=== PATIENT | female | born 1980 | race Caucasian/White ===

== ENCOUNTER 2016-09-12 07:17 | Day surgery (SDC) | payer MEDICAID ==
[2016-09-12] MEDS ORDERED: Dextrose 5%-Lactated Ringers 1,000 ML IV SCH (08:15)
[2016-09-12] MEDS ORDERED: Dexamethasone 4 MG/ML SDV ONE (09:11)
[2016-09-12] MEDS ORDERED: Propofol 200 MG/20 ML SDV ONE (09:11)
[2016-09-12] MEDS ORDERED: Neostigmine Methylsulfate 1 MG/ML 5 ML Syringe ONE (09:11)
[2016-09-12] MEDS ORDERED: Succinylcholine/Normal Saline 200 MG/10 ML Syringe ONE (09:11)
[2016-09-12] MEDS ORDERED: fentaNYL 250 MCG/5 ML SDV ONE ×2 (09:11→09:54)
[2016-09-12] MEDS ORDERED: Ondansetron 4 MG/2 ML SDV ONE (09:11)
[2016-09-12] MEDS ORDERED: Rocuronium 50 MG/5 ML Vial ONE (09:11)
[2016-09-12] MEDS ORDERED: Lidocaine 1% 2 ML ONE (09:25)
[2016-09-12] MEDS ORDERED: Bupivacaine 0.5%/EPINEPHrine 1:200,000 50 ML MDV ONE (09:43)
[2016-09-12] MEDS: cefOXitin 2 GM in Sodium Chloride 0.9% 50 ML IV ONE ×2 (09:55→11:25)
[2016-09-12] MEDS ORDERED: Naloxone 0.4 MG/ML SDV IV PRN (09:57)
[2016-09-12] MEDS ORDERED: HYDROmorphone/Normal Saline 15 MG/30 ML PCA IV PRN (10:00)
[2016-09-12] MEDS ORDERED: ALPRAZolam 0.25 MG Tab PO PRN (10:45)
[2016-09-12] MEDS ORDERED: Acetaminophen/HYDROcodone 325-5 MG Tab PO PRN (11:38)
[2016-09-12] MEDS ORDERED: Ondansetron 4 MG/2 ML SDV IVPUSH PRN (11:38)
[2016-09-12 13:11] VITALS: BP 139/89
[2016-09-12] MEDS ORDERED: Pantoprazole 40 MG Vial IV SCH (14:00)
[2016-09-12] MEDS ORDERED: cefOXitin 2 GM in Sodium Chloride 0.9% 50 ML IV ONE (16:00)
[2016-09-12] MEDS ORDERED: busPIRone 10 MG Tab PO SCH (21:00)
[2016-09-12] MEDS ORDERED: Melatonin 3 MG Tab PO SCH (21:00)
--- NOTE | 2016-09-18 13:37 | OR ---
DATE OF PROCEDURE: 09/12/2016 PREOPERATIVE DIAGNOSIS: Biliary dyskinesia. POSTOPERATIVE DIAGNOSES: 1. Biliary dyskinesia. 2. Umbilical hernia. PROCEDURE: Diagnostic laparoscopy with: 1. Cholecystectomy (03089). 2. Umbilical hernia repair (76307). ANESTHESIA: General. TRAINING AND DEVELOPMENT OFFICER: Camryn Arreola PA-C. INDICATIONS FOR PROCEDURE: This is a 36-year-old presenting with recurrent upper abdominal pain and nausea. A CCK-stimulated HIDA scan was consistent with biliary dyskinesia, and the plan is to proceed with a laparoscopic cholecystectomy. Potential risks including bleeding, infection, injury to underlying viscera such as common bile duct, potential persistence of symptoms postoperatively, such were all reviewed, and the patient wishes to proceed. DETAILS OF PROCEDURE: The patient was taken to the operating room after general endotracheal anesthesia was induced. The abdomen was prepped and draped. A transverse epigastric incision was made in the peritoneal cavity under direct vision with an Optiview trocar and inflated to 15 mmHg pressure with CO2. The laparoscope was reinserted. No underlying trocar insertion site injuries were seen. Following this, the umbilical area was examined. The patient was noted to have a roughly 1 cm umbilical hernia, a transverse infraumbilical incision was made. Initially, the camera port trocar was placed through the center of the umbilical hernia in preparation for subsequent repair. one 5 mm trocar was then placed in the right upper quadrant, and at that point, the gallbladder was examined and noted to be quite distended, somewhat thick-walled, and white-cowan in appearance consistent with chronic cholecystitis. The gallbladder was retracted anterolaterally and dissection began on the gallbladder neck, continued around the gallbladder neck and cystic duct junction. Once that area was well delineated as was the cystic artery, both structures were clipped 3 times proximally, one distally, and the gallbladder dissected off the gallbladder bed using Harmonic scalpel and throughout the upper midline port. I retained a small amount of sludge along with cholesterolosis of the gallbladder mucosa. The area of dissection was inspected. No bleeding or bile leaks were seen. A David-Roach drain was felt not to be necessary. The camera port was then brought back up to the epigastric site, and at that point, attention was taken to the umbilical hernia. Using the laparoscopic suture passer with 0 Vicryl sutures. Sutures were placed such the umbilical hernia would be closed with a transverse orientation. Once these sutures were all in place, the remaining trocars removed and the peritoneal cavity deflated. The epigastric site was closed with fascia with the 0 Vicryl stitch, and after decompression of the abdomen, the umbilical hernia was then repaired. Sutures were tied and the skin at each of the locations closed with a 4-0 Vicryl skin stitch. Dressing was applied. The patient was taken to the recovery room in satisfactory condition. There were no evident complications. Physician surveyor instrument assistant, Camryn Arreola, played an essential role in assisting in this case, helping to position the patient, retract structures as needed, as well suturing and cutting sutures when indicated. Her presence improved the patient's safety and decreased operative time. Toñito Ace MD /[id number]
== END 2016-09-12 18:30 | disposition home or self-care (01) ==
LOC: JP.SDS 07:17 → JP.MS 11:00 → JP.SDS 18:30
PROVIDERS: ATTEND Surgery
PROC: 0FT40ZZ Resection of Gallbladder, Open Approach (ICD-10-PCS; principal; 2016-09-12)
PROC: 0FT44ZZ Resection of Gallbladder, Percutaneous Endoscopic Approach (ICD-10-PCS; 2016-09-12)
PROC: 0WQF4ZZ Repair Abdominal Wall, Percutaneous Endoscopic Approach (ICD-10-PCS; 2016-09-12)
DX: K83.9 Disease of biliary tract, unspecified (principal); K81.1 Chronic cholecystitis; K42.9 Umbilical hernia without obstruction or gangrene
CPT/HCPCS: 36415; 47562; 49652; 80053; 85027; A9270; C9113; J0694; J1100; J1170; J2405; J2704; J3010; J7042; J7050; 88304

== ENCOUNTER 2016-11-17 08:00 | Emergency (ER) | payer MEDICAID ==
[2016-11-17] MEDS ORDERED: Ketorolac 60 MG/2 ML SDV IM ONE (08:34)
--- NOTE | 2016-11-17 08:37 | EDM.PDOC ---
[id number] PAIN, VOMITING Time Seen by Provider: 11/17/16 08:15 Source of Information: Reports: Patient, Family History Limitations: Reports: No Limitations - History of Present Illness INITIAL COMMENTS - FREE TEXT/NARRATIVE: 36-year-old female who started getting ill 36 hours ago with a sore throat, then developed generalized body aches, nasal congestion, earaches and nausea and vomiting. Onset: Gradual (Over the last day and a half) Severity: Moderate Associated Symptoms: Reports: Fever/Chills, Headaches, Nausea/Vomiting, Other ( Nasal congestion, ear pain and sore throat). Denies: Cough, Shortness of Breath Generalized Pain Score (Numeric/FACES): 9 - Related Data Allergies Allergy/AdvReac Type Severity Reaction Status Date / Time diphenhydramine Allergy Cannot Verified 11/17/16 08:08 Remember Home Meds: Home Meds ALPRAZolam [Alprazolam] 0.25 mg PO ASDIRECTED PRN 07/30/16 [History] Acetaminophen/HYDROcodone [Prospect 325-5 MG] 1 - 2 tab PO Q4H PRN 09/08/16 [ History] Levonorgestrel [Mirena] 1 each IY 09/08/16 [History] Melatonin 10 mg PO BEDTIME 09/08/16 [History] busPIRone [Buspar] 10 mg PO BID 09/08/16 [History] Ondansetron [Zofran ODT] 4 mg PO Q4H PRN #10 tab.dis 09/12/16 [Rx] Past Medical History HEENT History: Reports: Impaired Vision Other HEENT History: tinitis Gastrointestinal History: Reports: Cholelithiasis, GERD 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 OB/BYN History: IUD currently placed; HPV leap procedure Neurological History: Reports: Headaches, Chronic Psychiatric History: Reports: Anxiety, Depression, Panic Attack - Infectious Disease History Infectious Disease History: Reports: Chicken Pox - Past Surgical History Cardiovascular Surgical History: Reports: None GI Surgical History: Reports: Cholecystectomy Social & Family History - Tobacco Use Smoking Status *Q: Light Tobacco Smoker Years of Tobacco use: 20 Packs/Tins Daily: 0.2 Used Tobacco, but Quit: No Second Hand Smoke Exposure: Yes - Caffeine Use Caffeine Use: Reports: Coffee, Soda - Alcohol Use Days Per Week of Alcohol Use: 2 Number of Drinks Per Day: 4 Total Drinks Per Week: 8 - Recreational Drug Use Recreational Drug Use: No ED ROS GENERAL - Review of Systems Review Of Systems: See Below Constitutional: Reports: Fever, Chills, Malaise, Weakness HEENT: Reports: Ear Pain, Throat Pain Respiratory: Denies: Shortness of Breath, Cough Cardiovascular: Denies: Chest Pain Endocrine: Reports: Fatigue GI/Abdominal: Reports: Abdominal Pain, Nausea, Vomiting Skin: Reports: No Symptoms Neurological: Reports: Dizziness, Headache Psychiatric: Reports: Anxiety ED EXAM, GENERAL - Physical Exam Exam: See Below Exam Limited By: No Limitations General Appearance: Alert, Mild Distress (Looks very uncomfortable, dramatic) Eye Exam: Bilateral Eye: Normal Inspection (Good hydration, no jaundice) Ears: Normal TMs Throat/Mouth: Normal Inspection Head: Atraumatic Respiratory/Chest: No Respiratory Distress, Lungs Clear Cardiovascular: Regular Rate, Rhythm GI/Abdominal: Soft, Tender (Reacts is some tenderness to palpation across the upper abdomen) Course - Vital Signs Last Recorded V/S: Last Vital Signs Temp 98.3 F 11/17/16 08:21 Pulse 72 11/17/16 09:54 Resp 14 11/17/16 09:54 BP 130/76 11/17/16 09:54 Pulse Ox 96 11/17/16 09:54 - Orders/Labs/Meds Orders: Active Orders 24 hr Category Date Time Status BABESIA MICROTI IGG AND IGM [REF] Stat Lab 11/17/16 09:15 Received CULTURE STREP A CONFIRMATION [RM] Routine Lab 11/17/16 08:33 Results EHRLICHIA CHAFFEENSIS, IGG&IGM [REF] Stat Lab 11/17/16 09:15 Received LYME AB SCREEN RFLX [REF] Stat Lab 11/17/16 09:15 Received STREP SCRN A RAPID W CULT CONF [RM] Routine Lab 11/17/16 08:33 Results Labs: Laboratory Tests 11/17/16 11/17/16 Range/Units 09:15 09:15 WBC 7.3 (4.5-11.0) K/uL RBC 4.51 (3.30-5.50) M/uL Hgb 13.8 (12.0-15.0) g/dL Hct 40.5 (36.0-48.0) % MCV 90 (80-98) fL MCH 31 (27-31) pg MCHC 34 (32-36) % Plt Count 261 (150-400) K/uL Neut % (Auto) 82 H (36-66) % Lymph % (Auto) 5 L (24-44) % Bath % (Auto) 11 H (2-6) % Eos % (Auto) 2 (2-4) % Baso % (Auto) 0 (0-1) % Sodium 136 L (140-148) mmol/L Potassium 3.4 L (3.6-5.2) mmol/L Chloride 102 (100-108) mmol/L Carbon Dioxide 26 (21-32) mmol/L Anion Gap 11.4 (5.0-14.0) mmol/L BUN 7 (7-18) mg/dL Creatinine 0.7 (0.6-1.0) mg/dL Est Cr Clr Drug Dosing 107.00 mL/min Estimated GFR (MDRD) > 60 (>60) Glucose 101 (74-106) mg/dL Calcium 8.9 (8.5-10.1) mg/dL Total Bilirubin 0.4 (0.2-1.0) mg/dL AST 19 (15-37) U/L ALT 19 (12-78) U/L Alkaline Phosphatase 20 L (46-116) U/L Total Protein 6.6 (6.4-8.2) g/dL Albumin 3.8 (3.4-5.0) g/dL Globulin 2.8 (2.3-3.5) g/dL Albumin/Globulin Ratio 1.4 (1.2-2.2) Lipase 105 (73-393) U/L Meds: Medications Discontinued Medications Generic Name Dose Route Start Last Admin Trade Name Freq PRN Reason Stop Dose Admin Ketorolac Tromethamine 60 mg 11/17/16 08:34 11/17/16 08:40 Toradol IM 11/17/16 08:35 60 mg ONETIME ONE Administration - Re-Assessments/Exams Free Text/Narrative Re-Assessment/Exam: 11/17/16 08:36 A rapid strep was obtained. She was also given 60 mg of Toradol IM. 11/17/16 09:24 Rapid strep is negative. The Toradol did help her pain but she was still uncomfortable. She and her mother insisted something serious is wrong, a CBC CMP lipase and lymes, babesiosis, ehrlichiosis were obtained. 11/17/16 10:12 Labs are all reassuring. This likely is a viral syndrome, no antibiotics indicated pending tick borne illness labs. Encouraged the patient to rest, stay hydrated, and increase activity and diet as tolerated. Departure - Departure Time of Disposition: 10:24 Disposition: Home, Self-Care 01 Condition: fair Clinical Impression: Viral syndrome, URI, acute - Discharge Information Instructions: Viral Respiratory Infection, [id number], Upper Respiratory Infection, Adult, [id number] Referrals: Arpita Dawn FIRM ADMINISTRATOR [Primary Care Provider] - Forms: ED Department Discharge Care Plan Goals: Rest, fluids, ibuprofen or naproxen as needed for pain and fever and increase activity and diet as tolerated. Consider rechecking in 2-3 days if not improving satisfactorily. - My Orders Last 24 Hours: My Active Orders 11/17/16 08:33 CULTURE STREP A CONFIRMATION [RM] Routine STREP SCRN A RAPID W CULT CONF [RM] Routine 11/17/16 09:15 BABESIA MICROTI IGG AND IGM [REF] Stat EHRLICHIA CHAFFEENSIS, IGG&IGM [REF] Stat LYME AB SCREEN RFLX [REF] Stat - Assessment/Plan Last 24 Hours: My Active Orders 11/17/16 08:33 CULTURE STREP A CONFIRMATION [RM] Routine STREP SCRN A RAPID W CULT CONF [RM] Routine 11/17/16 09:15 BABESIA MICROTI IGG AND IGM [REF] Stat EHRLICHIA CHAFFEENSIS, IGG&IGM [REF] Stat LYME AB SCREEN RFLX [REF] Stat
[2016-11-17 10:00] VITALS: BP 130/76
== END 2016-11-17 10:24 | disposition home or self-care (01) ==
LOC: JP.ED 08:00
DX: J06.9 Acute upper respiratory infection, unspecified (principal); B34.9 Viral infection, unspecified; Z90.49 Acquired absence of other specified parts of digestive tract; F41.9 Anxiety disorder, unspecified; F32.9 Major depressive disorder, single episode, unspecified; K21.9 Gastro-esophageal reflux disease without esophagitis; Z79.899 Other long term (current) drug therapy; Z88.8 Allergy status to other drugs, medicaments and biological substances
CPT/HCPCS: 80053; 83690; 85025; 86618; 86666; 86753; 87081; 87430; 96372; 99283; J1885; 36415

== ENCOUNTER 2022-01-27 09:42 | Emergency (ER) | payer MEDICAID ==
[2022-01-27 09:52] VITALS: BP 136/97; PULSE 77
[2022-01-27] MEDS ORDERED: Ondansetron 4 MG Tab.DIS PO ONE (10:16)
[2022-01-27 10:48] LABS: ESTIMATED GFR 94 mL/min (>60)
== END 2022-01-27 11:35 | disposition home or self-care (01) ==
LOC: JP.ED 09:42
DX: S80.861A Insect bite (nonvenomous), right lower leg, initial encounter (principal); R11.2 Nausea with vomiting, unspecified; Z88.8 Allergy status to other drugs, medicaments and biological substances; Z20.822 Contact with and (suspected) exposure to COVID-19; W57.XXXA Bitten or stung by nonvenomous insect and other nonvenomous arthropods, initial encounter
CPT/HCPCS: 36415; 80053; 83690; 85025; 86140; 86618; 87635; 99284; Q0162; U0002

== ENCOUNTER 2022-09-11 14:28 | Emergency (ER) | payer MEDICAID ==
[2022-09-11 15:15] VITALS: BP 140/91; PULSE 87
[2022-09-11 16:04] LABS: CORONAVIRUS COVID-19 NAA POSITIVE (NEGATIVE)
== END 2022-09-11 16:28 | disposition home or self-care (01) ==
LOC: JP.ED 14:28
DX: U07.1 COVID-19 (principal); Z88.8 Allergy status to other drugs, medicaments and biological substances
CPT/HCPCS: 0241U; 87081; 87880; 99283

== ENCOUNTER 2024-08-15 18:34 | Emergency (ER) | payer MEDICAID ==
[2024-08-15 20:19] LABS: BASOPHILS PERCENT AUTO 0.1 % (0.1-1.3); EOSINOPHILS ABSOLUTE AUTO 0.11 K/uL (0.00-0.40); EOSINOPHILS PERCENT AUTO 0.8 % (0.0-5.4); HEMOGLOBIN 15.5 g/dL (11.2-15.5); IMMATURE GRAN ABSOLUTE AUTO 0.05 K/uL (0.00-0.23); IMMATURE GRAN PERCENT AUTO 0.4 % (0.0-0.7); LYMPHOCYTES ABSOLUTE AUTO 0.55 K/uL (0.8-3.3); LYMPHOCYTES PERCENT AUTO 4.1 % (11.4-47.7); MEAN CORPUSCULAR HEMOGLOBIN 30.9 pg (31.6-35.5); MEAN CORPUSCULAR HGB CONC 35.2 g/dL (31.6-35.5); MEAN CORPUSCULAR VOLUME 87.6 fL (81.4-99.0); MONOCYTES ABSOLUTE AUTO 0.34 K/uL (0.20-0.90); MONOCYTES PERCENT AUTO 2.5 % (3.3-12.6); NEUTROPHILS ABSOLUTE AUTO 12.29 K/uL (1.0-7.6); NEUTROPHILS PERCENT AUTO 92.1 % (40.0-78.1); PLATELET COUNT,PLT 285 K/uL (130-375); RED BLOOD CELL COUNT 5.02 M/uL (3.77-5.24); WHITE BLOOD CELL COUNT,WBC 13.4 K/uL (3.2-11.0)
[2024-08-15 20:20] LABS: BASOPHILS ABSOLUTE AUTO 0.02 K/uL (0.00-0.10)
[2024-08-15] MEDS: Ondansetron 4 MG/2 ML SDV IVPUSH ONE (20:28)
[2024-08-15] MEDS: HYDROmorphone 0.5 MG/0.5 ML Syringe IVPUSH ONE (20:28)
[2024-08-15] MEDS: Sodium Chloride 0.9% 10 ML Syringe FLUSH PRN (20:28)
[2024-08-15 20:40] LABS: BLOOD UREA NITROGEN,BUN 20 mg/dL (7-18); CARBON DIOXIDE,CO2 23 mmol/L (21-32); CHLORIDE,CL 103 mmol/L (100-108); CREATININE 0.9 mg/dL (0.6-1.0); GLUCOSE RANDOM 119 mg/dL (74-106); POTASSIUM,K 3.8 mmol/L (3.6-5.2); SODIUM,NA 138 mmol/L (140-148)
[2024-08-15 20:41] LABS: A/G RATIO 1.4 (1.2-2.2); ALANINE AMINOTRANSFERASE,ALT 24 U/L (12-78); ALBUMIN 4.4 g/dL (3.4-5.0); ALKALINE PHOSPHATASE 20 U/L (46-116); ANION GAP 15.8 mmol/L (5.0-14.0); ASPARTATE AMNIOTRANSFERASE,AST 18 U/L (15-37); BILIRUBIN TOTAL 0.7 mg/dL (0.2-1.0); C-REACTIVE PROTEIN < 0.50 mg/dL (<0.50); CALCIUM 9.7 mg/dL (8.5-10.1); EST CRCL DRUG DOSING (CG) 76.76 mL/min; ESTIMATED GFR 80 mL/min (>60); PROTEIN TOTAL,TP 7.5 g/dL (6.4-8.2)
[2024-08-15 22:57] VITALS: BP 105/68; PULSE 69
[2024-08-15] MEDS: Famotidine 20 MG/2 ML SDV IVPUSH ONE (23:01)
[2024-08-15] MEDS: LORazepam 0.5 MG Tab PO ONE (23:02)
== END 2024-08-15 23:56 | disposition home or self-care (01) ==
LOC: JP.ED 18:34
DX: R11.2 Nausea with vomiting, unspecified (principal); R10.9 Unspecified abdominal pain; F17.210 Nicotine dependence, cigarettes, uncomplicated; Z90.49 Acquired absence of other specified parts of digestive tract; Z79.899 Other long term (current) drug therapy; Z88.8 Allergy status to other drugs, medicaments and biological substances
CPT/HCPCS: 36415; 71046; 80053; 84484; 84703; 85025; 86140; 93005; 96374; 96375; 99284; A9270; J2405; 93010

== ENCOUNTER 2025-04-11 07:30 | Day surgery (SDC) | payer MEDICAID ==
[2025-04-11] MEDS ORDERED: Propofol 200 MG/20 ML SDV ONE (07:36)
[2025-04-11] MEDS ORDERED: fentaNYL 100 MCG/2 ML SDV ONE (07:37)
[2025-04-11] MEDS ORDERED: Midazolam 1 MG/ML 2 ML SDV ONE (07:37)
[2025-04-11] MEDS: Lactated Ringers 1,000 ML IV SCH (08:19)
[2025-04-11 10:42] VITALS: BP 124/87; PULSE 61
== END 2025-04-11 10:55 | disposition home or self-care (01) ==
LOC: JP.SDS 07:30
PROVIDERS: ATTEND Surgery
DX: D12.2 Benign neoplasm of ascending colon (principal); K57.31 Diverticulosis of large intestine without perforation or abscess with bleeding; K64.9 Unspecified hemorrhoids; Z88.8 Allergy status to other drugs, medicaments and biological substances; Z87.891 Personal history of nicotine dependence; Z79.899 Other long term (current) drug therapy
CPT/HCPCS: 00811; 45385; 45398; J2250; J2704; J3010; J7120; 88305

== ENCOUNTER 2025-05-21 08:00 | Day surgery (SDC) | payer MEDICAID ==
[2025-05-21] MEDS: Lactated Ringers 1,000 ML IV SCH (08:57)
[2025-05-21] MEDS ORDERED: Midazolam 1 MG/ML 2 ML SDV ONE (09:50)
[2025-05-21] MEDS ORDERED: Propofol 200 MG/20 ML SDV ONE ×3 (09:50→10:34)
[2025-05-21] MEDS ORDERED: fentaNYL 100 MCG/2 ML SDV ONE (09:50)
[2025-05-21] MEDS: metroNIDAZOLE/Normal Saline 500 MG in Premix Bag 1 BAG IV ONE (10:30)
[2025-05-21 11:45] VITALS: BP 126/86; PULSE 66
[2025-05-21] MEDS: Lidocaine 1% with EPINEPHrine 1:100,000 50 ML MDV ONE (12:46)
[2025-05-21] MEDS: Lidocaine 2% Jelly 10 ML Urojet ONE (12:47)
== END 2025-05-21 11:49 | disposition home or self-care (01) ==
LOC: JP.SDS 08:00
PROVIDERS: ATTEND Surgery
DX: K64.4 Residual hemorrhoidal skin tags (principal); K64.8 Other hemorrhoids; F17.200 Nicotine dependence, unspecified, uncomplicated; Z88.8 Allergy status to other drugs, medicaments and biological substances; Z79.899 Other long term (current) drug therapy
CPT/HCPCS: 00902-QZ; J0665; J0690; J1836; J2250; J2704; J3010; J7120